=== PATIENT | male | born 1985 | race Caucasian/White ===

== ENCOUNTER 2024-11-23 21:39 | Emergency (ER) | payer OTHER, SELFPAY ==
--- OUTSIDE RECORDS SUMMARY | 2024-11-23 21:45 | XMS_ITS | Clinical Summary ---
Author Organization [facility] Address [address] [place] [address] Care Team Providers Care Precision Assembly Inspector Name Role Phone Brandin Harman MD Primary Care Provider [phone] Norma Mercado NP Unavailable [phone] Allergies No known active allergies Medications No known medications Active Problems Problem Noted Date Diagnosed Date Fever 06/09/2024 Assessment & Plan (06/09/2024 5:01 PM EST): Fluids, tylenol/motrin prn Check for covid/flu in office test: negative Acute non-recurrent maxillary sinusitis 06/09/20 Assessment & Plan (06/09/2024 5:02 PM EST): Possible sinus infection secondary to inhalation last week Did have a nose bleed as well Current symptoms started with frontal FAUSTIN, and then 2 days later fever Will treat for sinus infection If not better or new symptoms occur contact office Chronic right shoulder pain 02/19/2024 Assessment & Plan (02/19/2024 9:16 AM EDT): Suspect labral tear Will refer to ortho Fu if needed Resolved Problems Problem Noted Date Diagnosed Date Resolved Date Acute URI 06/12/2023 06/09/2024 Assessment & Plan (06/12/2023 9:41 AM EST): Patient reports cough, nasal, chest congestion, post nasal drip, sinus pain x 3 weeks He initially had fever too but has been afebrile over a week now. 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 Based on exam - I am confident that he needs an antibiotic therapy. I will call in PO Augmentin for the patient. I will also add Prednisone 40 mg for 5 days to help with congestive symptoms, cough and Benzonatate as needed for cough. Patient encouraged to call office if worsening symptoms despite being on medications. And to seek emergent care if he develops systemic signs and symptoms of infection like persistent fever, lightheadedness, confusion or SOB. Immunizations Immunization Administration Dates Next Due DTP 09/27/1990, 7,01/23/1986,1985,0 1985 Hep B, Adolescent or Pediatric 08/02/1999,1997,01/14/1998 HiB, unspecified 06/29/1987 MMR 01/13/1998,10/02/1986 OPV 09/27/1990,02/04/1987,1985 ,1985 Td (adult), unspecified 08/02/1999 Social History Tobacco Use Types Packs/Day Years Used Date Smoking Tobacco: Never Smokeless Tobacco: Never Tobacco Cessation:Counseling Given: No Alcohol Use Standard Drinks/Week Comments Yes 0 (1 standard drink = 0.6 oz pur e alcohol) Sex and Gender Information Value Date Recorded Sex Assigned at Not on file Legal Sex Male 6:39 PM EDT Gender Identity Not on file Sexual Orientation Not on file Last Filed Vital Signs Vital Sign Reading Time Taken Comments Blood Pressure 100/80 06/09/2024 4:26 PM EST Pulse 95 06/09/2024 4:26 PM EST Temperature 37.3 C (99.2 F) 06/09/2024 4:26 PM EST Respiratory Rate 18 06/09/2024 4:26 PM EST Oxygen Saturation 96% 06/09/2024 4:26 PM EST Inhaled Oxygen Concentration - - Weight 100 kg (220 lb 12.8 oz) 06/09/2024 4:26 P M EST Height 185.4 cm (6' 1 ) 06/09/2024 4:26 PM EST Body Mass Index 29.13 06/09/2024 4:26 PM EST Plan of Treatment Health Maintenance Due Date Last Done Comments Influenza Vaccine Discontinued Insurance [facility] Address: [facility] [id number] [place] [address] Care Teams Precision Assembly Inspector Relationship Specialty Start Date End Date Brandin Harman MD [address] [place] [id number] PCP - General Family Medicine 02/12/24 Norma Mercado NP [address] [place] [id number] Nurse Practitioner Family Medicine 02/12/24
[2024-11-23 21:56] VITALS: PULSE 66; TEMP 36.7; O2SAT 100; BMI 29.1
--- NOTE | 2024-11-23 22:10 | ED_ITS ---
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 Presents complaining of pain. Able to control bleeding by applying pressure. Has minor abrasion left hand but not concerned about it. Denies other injures. Not sure of last Tetanus shot Related Data Previous Rx's ?Medication ?Instructions ?Recorded ibuprofen 600 mg tablet 600 mg PO Q8H PRN pain #20 t abs 11/24/24 Allergies Allergy/AdvReac Type Severity Reaction Status Date / Time codeine Allergy Mild Unknown Verified 11/23/24 22:05 Review of Systems ROS Status of ROS 10 or more systems reviewed and unremark able except as noted in history and below PFSH PFSH Social History Little interest or pleasure in doing things: not at all Feeling down, depressed, or hopeless: not at all Exam Constitutional Vital Signs, click to edit/add: Last Vital Signs Temp 98.1 F 11/23/24 21:56 Pulse 66 11/23/24 21:56 Resp 20 11/23/24 21:56 Pulse Ox 100 11/23/24 21:56 O2 Del Method Room Air 11/23/24 21:56 Common normals: no apparent distress, average body habitus, oriented x3, no limitations, healthy appearing, alert and well nourished [facility] Common normals: normocephalic and head/scalp atraumatic Eye Common normals: PERRL and EOMs intact bilaterally Respiratory Common normals: normal respiratory effort, no retractions, no use of accessory muscles and clear to auscultation bilaterally Cardio Common normals: regular rate, regular rhythm, S1 normal heart sound and S2 normal heart sound Extremity Other: deep blunt laceration right medial calf area. 8cm lac. no obvious FB. No active bleeding at this time. No swelling or ecchymosis Neuro Common normals: oriented x3, CN's II-XII intact bilaterally and moves all extremities Sensorium/orientation: awake Psych Appearance: grossly normal Course Vital Signs Vital signs: Vital Signs Temperature 98.1 F 11/23/24 21:56 Pulse Rate 66 11/23/24 21:56 Respiratory Rate 20 11/23/24 21:56 Pulse Oximetry 100 11/23/24 21:56 Oxygen Delivery Method Room Air 11/23/24 21:56 Temperature 98.1 F 11/23/24 21:56 Pulse Rate 66 11/23/24 21:56 Respiratory Rate 20 11/23/24 21:56 Pulse Oximetry 100 11/23/24 21:56 Oxygen Delivery Method Room Air 11/23/24 21:56 MDM - Extremity Injury (Lower) MDM Narrative Medical decision making narrative: presents after blunt lac to right medial calf. Peg of motor bite cut his leg. Patient given dose of Augmentin and also tetanus. Laceration repaired as above. Patient discharged home to follow up with his doctor Discharge Plan Discharge Chief Complaint: Wound/Laceration Clinical Impression: Laceration Patient Disposition: Home, Self-Care Prescriptions / Home Meds: New ibuprofen 600 mg tablet 600 mg PO Q8H PRN (Reason: pain) Qty: 20 0RF Print Language: Lebanese Instructions: Laceration (ED) Additional Instructions: have wound rechecked in 2-3 days and stitches removed in 10-12 days Referrals: Norma Mercado NP [Primary Care Provider, Family Practice] - 1 week Discharge Date/Time: 11/24/24 00:20 Procedures ED Procedure Instructions Procedures Procedures: lac. repair.right leg. 8cm full thickness into SQ space. No obvious FB. 1% lido with epi as local. Site cleaned with betadine and rinsed with saline closed with # 3 4.0 vicry and #10 3.0 nylon interrupted stitches. tolerated well.
[2024-11-23] MEDS: AMOXICILLIN/POT CLAV 875-125 MG TABLET 1 TAB PO (22:29)
[2024-11-23] MEDS: ADACEL DIPH,PERTUSS(ACELL),TET VAC/PF 0.5 ML ADULT SYRINGE IM (22:29)
[2024-11-23] MEDS: LIDOCAINE HCL 1%-EPINEPHRINE 1:100,000 20 ML MDV INJ (22:31)
== END 2024-11-24 00:20 | disposition home or self-care (01) ==
PROVIDERS: Emergency Provider Internal Medicine; PCP Nurse Practitioner
DX: S81.811A Laceration without foreign body, right lower leg, initial encounter (principal); S60.512A Abrasion of left hand, initial encounter; Z23 Encounter for immunization; W26.8XXA Contact with other sharp object(s), not elsewhere classified, initial encounter
CPT/HCPCS: 12004; 73590; 90471; 90715; 99284

== ENCOUNTER 2024-12-03 08:10 | Outpatient (OUT) | payer OTHER, SELFPAY ==
[2024-12-03 10:57] LABS: Basophils Absolute Auto 0.1 10^3/uL (0.0-0.1); Basophils Percent Auto 0.7 % (0.2-2.0); Eosinophils Absolute Auto 0.2 10^3/uL (0.0-0.7); Eosinophils Percent Auto 3.4 % (0.9-7.0); Hematocrit 45.4 % (42.0-54.0); Hemoglobin 15.9 g/dL (14.0-18.0); Immature Granulocytes Abs Auto 0.02 10^3/uL (0.00-0.03); Immature Granulocytes Pct Auto 0.3 % (0.0-0.5); Lymphocytes Absolute Auto 3.1 10^3/uL (1.2-3.8); Lymphocytes Percent Auto 46.1 % (20.5-60.0); Mean Corpuscular Hemoglobin 29.3 pg (25.9-34.0); Mean Corpuscular Volume 83.6 fL (80.0-94.0); Mean Platelet Volume 11.5 fL (9.5-13.5); Monocytes Absolute Auto 0.6 10^3/uL (0.3-0.8); Monocytes Percent Auto 8.3 % (1.7-12.0); Neutrophils Absolute Auto 2.8 10^3/uL (1.4-6.5); Neutrophils Percent Auto 41.2 % (43.0-75.0); Platelet Count 344 10^3/uL (150-450); Red Blood Count 5.43 10^6/uL (4.70-6.10); Red Cell Distribution Width 12.7 % (11.0-15.0); White Blood Count 6.7 10^3/uL (4.0-11.0)
[2024-12-03 11:00] LABS: Erythrocyte Sedimentation Rate 14 mm/hr (<=15)
[2024-12-03 11:22] LABS: C Reactive Protein <0.50 mg/dL (<=0.50)
== END 2024-12-03 08:11 | disposition home or self-care (01) ==
LOC: LAB 08:12
PROVIDERS: PCP Nurse Practitioner; Visit Provider Nurse Practitioner
DX: S81.811D Laceration without foreign body, right lower leg, subsequent encounter (principal)
CPT/HCPCS: 36415; 85025; 85652; 86140

== ENCOUNTER 2024-12-04 17:48 | Outpatient (OUT) | payer OTHER, SELFPAY ==
--- OUTSIDE RECORDS SUMMARY | 2024-11-26 14:00 | XMS_ITS | Encounter Summary ---
Author Organization [facility] Address [address] [facility] [place] [address] Care Team Providers Care Director Of Catering Name Role Phone Brandin Harman MD Primary Care Provider [phone] Norma Mercado NP Unavailable [phone] Reason for Visit * Reason Comments Laceration Encounter Details Date Type Department Care Team (Late st Contact Info) Description 11/26/2024 2:00 PM EDT Office Visit [facility] [address] [place] [address] Norma Mercado, ROLLING DOWN MACHINE OPERATOR [address] [place] [address] Laceration of right lower extremity, subsequent encounter (Primary Dx) Social History Tobacco Use Types Packs/Day Years Used Date Smoking Tobacco: Never Smokeless Tobacco: Never Alcohol Use Standard Drinks/Week Comments Yes 0 (1 standard drink = 0.6 oz pur e alcohol) Sex and Gender Information Value Date Recorded Sex Assigned at Not on file Legal Sex Male 6:39 PM EDT Gender Identity Not on file Sexual Orientation Not on file documented as of this encounter Last Filed Vital Signs Vital Sign Reading Time Taken Comments Blood Pressure 130/80 11/26/2024 2:19 PM EDT Pulse 85 11/26/2024 2:19 PM EDT Temperature 37 C (98.6 F) 11/26/2024 2:19 PM EDT Respiratory Rate 18 11/26/2024 2:19 PM EDT Oxygen Saturation 96% 11/26/2024 2:19 PM EDT Inhaled Oxygen Concentration - - Weight 102 kg (223 lb 12.8 oz) 11/26/2024 2:19 P M EDT Height - - Body Mass Index 29.53 06/09/2024 4:26 PM EST documented in this encounter Patient Instructions * Patient Instructions* Norma Mercado NP - 11/26/2024 2:00 PM EDT Finish atb Fu for suture removal documented in this encounter Progress Notes * Norma Mercado NP - 11/26/2024 2:47 PM EDTAssociated Problem(s): Laceration of right lower extremity Ice, cam, elevation Finish atb Discussed flexion/extension to prevent DVT Fu for suture removal in 10 days, Sooner if change in sxs Discussed wound care * FAROOQ MORRIS - 11/26/2024 2:00 PM EDT 3 de solvable sutures inside laceration and 10 outside. Pt states that laceration is still painful and stiff. Pt came in with an outdated borrowed crutch to help with balancing. Laceration is sutured, dry/scabbed over, open to air, clean, no swelling. Pt states he has been elevating right leg oftenand icing it as needed he does have an appt for suture removal on 12/04 in this office * Norma Mercado NP - 11/26/2024 2:00 PM EDT Images from the original note were not included. Vern Saavedra is a 39 y.o. male presents with chief complaint of Laceration HPI: Er FU: 10 sutures placed and 3 internal Laceration The incident occurred 2 days ago. The laceration is located on the Right leg. The laceration is 6 cm in size. The laceration mechanism was a blunt object and metal edge. The pain is at a severity of 3/10. The pain is mild. The pain has been Fluctuating since onset. He reports no foreign bodies present. His tetanus status is UTD. SUBJECTIVE: MEDICATIONS: Current Outpatient Medications Medication Instructions amoxicillin-clavulanate (Augmentin) 875-125 MG tablet 1 tablet, 2 times daily ibuprofen 600 MG tablet 1 tablet, Every 8 hours PRN ALLERGIES: No Known Allergies REVIEW OF SYMPTOMS: Review of Systems Constitutional: Negative for activity change, appetite change and unexpected weight change. HENT: Negative for ear pain, nosebleeds, sneezing, trouble swallowing and voice change. Eyes: Negative for pain, discharge and visual disturbance. Respiratory: Negative for apnea, chest tightness and wheezing. Cardiovascular: Negative for leg swelling. Gastrointestinal: Negative for abdominal distention, blood in stool, constipation and diarrhea. Genitourinary: Negative for decreased urine volume, difficulty urinating, dysuria and hematuria. Skin: Positive for wound. Negative for color change. Neurological: Negative for dizziness, tremors and seizures. Psychiatric/Behavioral: Negative for agitation, decreased concentration, hallucinations, self-injury and suicidal ideas. The patient is not nervous/anxious. Hematological: Negative for adenopathy. Does not bruise/bleed easily. Endocrine: Negative for cold intolerance, heat intolerance, polydipsia and polyuria. Allergic/Immunologic: Negative for environmental allergies and food allergies. PAST MEDICAL HISTORY No past medical history on file. Past Surgical History: Procedure Laterality Date RHINOPLASTY VASECTOMY Bilateral family history is not on file. OBJECTIVE: Visit Vitals BP 130/80 (BP Location: Left arm, Patient Position: Sitting, BP Cuff Size: Adult long) Pulse 85 Temp 98.6 ??F (Temporal) Resp 18 Wt 223 lb 12.8 oz SpO2 96% BMI 29.53 kg/m?? Smoking Status Never BSA 2.29 m?? Physical Exam Vitals and nursing note reviewed. Constitutional: Appearance: Normal appearance. HENT: Head: Normocephalic. Right Ear: External ear normal. Left Ear: External ear normal. Nose: Nose normal. Mouth/Throat: Mouth: Mucous membranes are moist. Pharynx: Oropharynx is clear. Eyes: Extraocular Movements: Extraocular movements intact. Conjunctiva/sclera: Conjunctivae normal. Cardiovascular: Rate and Rhythm: Normal rate and regular rhythm. Pulses: Normal pulses. Heart sounds: Normal heart sounds. Pulmonary: Effort: Pulmonary effort is normal. Breath sounds: Normal breath sounds. Musculoskeletal: Cervical back: Neck supple. Right lower leg: Edema present. Left lower leg: No edema. Skin: General: Skin is dry. Capillary Refill: Capillary refill takes 2 to 3 seconds. Comments: 6.5cm laceration right ng area with 10 sutures placed, no s/s infection Edges approx Mod swelling to calf area, sl bruising around the laceration No s/s infection of DVT, achilles is intact +DP/PT pulse right foot Neurological: General: No focal deficit present. Mental Status: He is alert. Psychiatric: Mood and Affect: Mood normal. Behavior: Behavior normal. Thought Content: Thought content normal. Judgment: Judgment normal. ASSESSMENT AND PLAN: No follow-ups on file. Problem List Items Addressed This Visit Laceration of right lower extremity - Primary Ice, cam, elevation Finish atb Discussed flexion/extension to prevent DVT Fu for suture removal in 10 days, Sooner if change in sxs Discussed wound care documented in this encounter Plan of Treatment Not on file documented as of this encounter Visit Diagnoses Diagnosis Laceration of right lower extremity, subsequent encounter- Primary documented in this encounter Care Teams Director Of Catering Relationship Specialty Start Date End Date Brandin Harman MD [address] [place] [address] PCP - General Family Medicine 02/12/24 Norma Mercado NP [address] [place] [address] Nurse Practitioner Family Medicine 02/12/24 documented as of this encounter
--- OUTSIDE RECORDS SUMMARY | 2024-12-04 16:00 | XMS_ITS | Encounter Summary ---
Author Organization [facility] Address [address] [facility] [place] [address] Care Team Providers Care New Business Clerk Name Role Phone Brandin Harman MD Primary Care Provider Norma Mercado NP Unavailable [phone] Reason for Visit * Reason Comments Suture / Staple Removal Encounter Details Date Type Department Care Team (Late st Contact Info) Description 12/04/2024 4:00 PM EDT Office Visit [facility] [address] [place] [address] Norma Mercado, APPLICATION DEVELOPMENT PROJECT MANAGER [address] [place] [address] Laceration of right lower extremity, subsequent encounter (Primary Dx); Right calf pain Social History Tobacco Use Types Packs/Day Years [...] Sign Reading Time Taken Comments Blood Pressure 130/86 12/04/2024 4:21 PM EDT Pulse 82 12/04/2024 4:21 PM EDT Temperature 36.9 C (98.5 F) 12/04/2024 4:21 PM EDT Respiratory Rate 18 12/04/2024 4:21 PM EDT Oxygen Saturation 97% 12/04/2024 4:21 PM EDT Inhaled Oxygen Concentration - - Weight 100 kg (220 lb 12.8 oz) 12/04/2024 4:21 P M EDT Height - - Body Mass Index 29.13 06/09/2024 4:26 PM EST documented in this encounter Patient Instructions * Patient Instructions* Norma Mercado NP - 12/04/2024 4:00 PM EDT Check xray and US at 6pm [facility] Finish atb documented in this encounter Progress Notes * Norma Mercado NP - 12/04/2024 5:12 PM EDTAssociated Problem(s): Right calf pain Check US to R/o DVT Appt 12/04/24 at 6pm Will also check xray ankle * Norma Mercado NP - 12/04/2024 5:11 PM EDTAssociated Problem(s): Laceration of right lower extremity Sutures removed, tolerated well Steri strips X2 Labs WNL Finish atb Cont NSAID, compression and elevation Wants to RTW on 12/07/24 * Norma Mercado NP - 12/04/2024 4:00 PM EDT Images from the original note were not included. Vern Saavedra is a 39 y.o. male presents with chief complaint of Suture / Staple Removal HPI: Open wound RLE, here for suture removal Had experienced an increase in swelling /reddness upon returning to work Took off work a few days, changed atb to clinda No drainage, no fever, chills, +pain right calf, and tenderness to right ankle no chest pain/pressure Has been using compression, elevation SUBJECTIVE: MEDICATIONS: Current Outpatient Medications Medication Instructions clindamycin (CLEOCIN) 300 mg, 4 times daily ibuprofen 600 MG tablet 1 tablet, Every 8 hours PRN ALLERGIES: No Known Allergies REVIEW OF SYMPTOMS: Review of Systems Constitutional: Negative for activity change, appetite change and unexpected weight change. HENT: Negative for ear pain, nosebleeds, sneezing, trouble swallowing and voice change. Eyes: Negative for pain, discharge and visual disturbance. Respiratory: Negative for apnea, chest tightness and wheezing. Cardiovascular: Positive for leg swelling. Gastrointestinal: Negative for abdominal distention, blood in stool, constipation and diarrhea. Genitourinary: Negative for decreased urine volume, difficulty urinating, dysuria and hematuria. Musculoskeletal: Positive for arthralgias. Skin: Positive for wound. Negative for color [...] not on file. OBJECTIVE: Visit Vitals BP 130/86 (BP Location: Left arm, Patient Position: Sitting, BP Cuff Size: Adult long) Pulse 82 Temp 98.5 ??F (Temporal) Resp 18 Wt 220 lb 12.8 oz SpO2 97% BMI 29.13 kg/m?? Smoking Status Never BSA 2.27 m?? Physical Exam Vitals and nursing note [...] breath sounds. Musculoskeletal: Cervical back: Neck supple. Comments: Wound to right ng area: 10 sutures intact and removed, tolerated well upper 1cm of laceration does appear to not have edges approx, steri stripsx2 applied Calf tender as well as ankle, generalized swelling about the RLE as well as ecchymosis +DP/PT pulse right Skin: General: Skin is warm and dry. Capillary Refill: Capillary refill takes 2 to 3 seconds. Neurological: General: No focal deficit present. Mental Status: He is alert. Psychiatric: Mood and Affect: Mood normal. Behavior: Behavior normal. Thought Content: Thought content normal. Judgment: Judgment normal. ASSESSMENT AND PLAN: No follow-ups on file. Problem List Items Addressed This Visit Laceration of right lower extremity - Primary Sutures removed, tolerated well Steri strips X2 Labs WNL Finish atb Cont NSAID, compression and elevation Wants to RTW on 12/07/24 Right calf pain Check US to R/o DVT Appt 12/04/24 at 6pm Will also check xray ankle documented in this encounter Plan of Treatment Not on file documented as of this encounter Visit Diagnoses Diagnosis Laceration of right lower extremity, subsequent encounter- Primary Right calf pain documented in this encounter Care Teams New Business Clerk Relationship Specialty Start Date End Date Brandin Harman MD [address] [place] [address] PCP - General Family Medicine 02/12/24 Norma Mercado NP [address] [place] [address] Nurse Practitioner Family Medicine 02/12/24 documented as of this encounter
--- OUTSIDE RECORDS SUMMARY | 2024-12-04 17:51 | XMS_ITS | Clinical Summary ---
Author Organization [facility] Address [address] [place] [address] Care Team Providers Care Day Habilitation Supervisor Name Role Phone Brandin Harman MD Primary Care Provider [phone] Norma Mercado NP Unavailable [phone] Allergies No known active allergies Medications ibuprofen 600 MG tablet Take 1 tablet by mouth every 8 (eight) hours if needed 5 Active clindamycin (Cleocin) 300 MG capsule Take 300 mg by mouth in the morning and 300 mg at noon and 300 mg in the evening and 300 mg before bedtime. 5 Active amoxicillin-cla vulanate (Augmentin) 875-125 MG tablet Take 1 tablet by mouth in the morning and 1 tablet before bedtime. 5 12/05/19 Discontinu ed(Therapy completed) Active Problems Problem Noted Date Diagnosed Date Right calf pain 12/04/2024 Assessment & Plan (12/04/2024 5:12 PM EDT): Check US to R/o DVT Appt 12/04/24 at 6pm Will also check xray ankle Laceration of right lower extremity 11/26/2024 Assessment & Plan (12/04/2024 5:11 PM EDT): Sutures removed, tolerated well Steri strips X2 Labs WNL Finish atb Cont NSAID, compression and elevation Wants to RTW on 12/07/24 Assessment & Plan (11/26/2024 2:47 PM EDT): Ice, cam, elevation Finish atb Discussed flexion/extension to prevent DVT Fu for suture removal in 10 days, Sooner if change in sxs Discussed wound care Chronic right shoulder pain 02/19/2024 Assessment & Plan (02/19/2024 9:16 AM EDT): Suspect labral tear Will refer to ortho Fu if needed Resolved Problems Problem Noted Date Diagnosed Date Resolved Date Fever 06/09/2024 11/26/2024 Assessment & Plan (06/09/2024 5:01 PM EST): Fluids, tylenol/motrin prn Check for covid/flu in office test: negative Acute non-recurrent maxillary sinusitis 06/09/2024 11/26/2024 Assessment & Plan (06/09/2024 5:02 PM EST): Possible sinus infection secondary to inhalation last week Did have a nose bleed as well Current symptoms started with frontal FAUSTIN, and then 2 days later fever Will treat for sinus infection If not better or new symptoms occur contact office Acute URI 06/12/2023 06/09/2024 Assessment & Plan (06/12/2023 9:41 AM EST): Patient reports cough, nasal, chest congestion, post nasal drip, sinus pain x 3 weeks He initially had fever too but has been afebrile over a week now. Denies earache/pressure, SOB but on exam has evidence of bilateral otitis media Patent had office based [employer]INE[employer] swab for resp panel, results of which [...] like persistent fever, lightheadedness, confusion or SOB. Encounters Date Type Department Care Team Description 12/04/2024 4:00 PM EDT Office Visit [facility] [address] [place] [address] Norma Mercado NP Laceration of right lower extremity, subsequent encounter (Primary Dx); Right calf pain 12/04/2024 Abstract [facility] [address] [place] [address] Norma Mercado NP 12/04/2024 Bamboo flowsheet [facility] [address] [place] [address] Norma Mercado NP 12/03/2024 Clinisync Result Encounter [facility] External Department Unsolicited Norma Mercado NP 12/03/2024 Orders Only [facility] [address] [place] [address] Norma Mercado NP Laceration of right lower extremity, subsequent encounter (Primary Dx) 11/26/2024 2:00 PM EDT Office Visit [facility] [address] [place] [phone] Norma Mercado NP Laceration of right lower extremity, subsequent encounter (Primary Dx) 11/26/2024 Bamboo flowsheet [facility] [address] [place] [address] Norma Mercado NP from Last 3 Months Immunizations Immunization Administration Dates Next Due DTP [...] oz) 12/04/2024 4:21 P M EDT Height 185.4 cm (6' 1 ) 06/09/2024 4:26 PM EST Body Mass Index 29.13 06/09/2024 4:26 PM EST Plan of Treatment Health Maintenance Due Date Last Done Comments Influenza Vaccine Discontinued Procedures Procedure Name Priority Date/Time Associated Diagnosis Comments ALL C REACTIVE PROTEIN Routine 12/03/2024 10:51 AM EDT ALL SED RATE Routine 12/03/2024 10:51 AM EDT ALL CBC WITH AUTO DIFF Routine 12/03/2024 10:51 AM EDT from Last 3 Months Results * ALL SED RATE (12/03/2024 10:51 AM EDT) [facility] SED RATE 14 <=15 mm/hr [facility] 12/03/2024 10:5 1 AM EDT 12/03/2024 10:55 AM EDT Narrative [facility] - 12/03/2024 11:00 AM EDT us Norma Mercado NP [facility] Final Result [facility] * (ABNORMAL) ALL CBC WITH AUTO DIFF (12/03/2024 10:51 AM EDT) [facility] WBC 6.7 4.0 - 11.0 10 3/uL [facility] RBC 5.43 4.70 - 6.10 10 6/uL [facility] HGB 15.9 14.0 - 18.0 g/dL [facility] TB[facility] HCT 45.4 42.0 - 54.0 % [facility] MCV 83.6 80.0 - 94.0 fL [facility] TB[facility] MCH 29.3 25.9 - 34.0 pg TBH TBH MCHC 35.0 29.9 - 35.2 g/dL [facility] RDW 12.7 11.0 - 15.0 % [facility] TBH PLT 344 150 - 450 10 3/uL [facility] MPV 11.5 9.5 - 13.5 fL [facility] NEUTROPHILS PERCENT AUTO 41.2(L) 43.0 - 75.0 % [facility] LYMPHOCYTES PERCENT AUTO 46.1 20.5 - 60.0 % [facility] MONOCYTES PERCENT AUTO 8.3 1.7 - 12.0 % [facility] EO % 3.4 0.9 - 7.0 % [facility] BASOPHILS PERCENT AUTO 0.7 0.2 - 2.0 % [facility] IMMATURE GRANULOCYTES PCT AUTO 0.3 0.0 - 0.5 % [facility] NEUTROPHILS ABSOLUTE AUTO 2.8 1.4 - 6.5 10 3/uL [facility] LYMPHOCYTES ABSOLUTE AUTO 3.1 1.2 - 3.8 10 3/uL [facility] MONOCYTES ABSOLUTE AUTO 0.6 0.3 - 0.8 10 3/uL [facility] TBH EO # 0.2 0.0 - 0.7 10 3/uL [facility] BASOPHILS ABSOLUTE AUTO 0.1 0.0 - 0.1 10 3/uL [facility] IMMATURE GRANULOCYTES ABS AUTO 0.02 0.00 - 0.03 10 3/uL [facility] 12/03/2024 10:5 1 AM EDT 12/03/2024 10:55 AM EDT Narrative CL[facility] - 12/03/2024 11:00 AM EDT us Norma Mercado NP [facility] Final Result [facility] * ALL C REACTIVE PROTEIN (12/03/2024 10:51 AM EDT) C REACTIVE PROTEIN <0.50 <=0.50 mg/dL [facility] 12/03/2024 10:5 1 AM EDT 12/03/2024 10:55 AM EDT Narrative [facility]IN[facility] - 12/03/2024 11:23 AM EDT Norma Mercado NP [facility] Final Result [facility] from Last 3 Months Insurance [facility] Address: [facility] [id number] [place] [phone] Care Teams Day Habilitation Supervisor Relationship Specialty Start Date End Date Brandin Harman MD [address] [place] [address] PCP - General Family Medicine 02/12/24 Norma Mercado NP [address] [place] [address] Nurse Practitioner Family Medicine 02/12/24
--- OUTSIDE RECORDS SUMMARY | 2024-12-04 17:51 | XMS_ITS | Encounter Summary ---
Author Organization [facility] Address [address] [facility] [place] [address] Care Team Providers Care Steward/Stewardess Name Role Phone Brandin Harman MD Primary Care Provider Norma Mercado NP Unavailable [phone] Encounter Details Date Type Department Care Team (Late st Contact Info) Description 12/04/[address] [facility] [address] [place] [phone] Norma Mercado NP [address] [place] [address] Social History Tobacco Use Types Packs/Day Years [...] on file documented as of this encounter Plan of Treatment Not on file documented as of this encounter Visit Diagnoses Not on filedocumented in this encounter Care Teams Steward/Stewardess Relationship Specialty Start Date End Date Brandin Harman MD [address] [place] [address] PCP - General Family Medicine 02/12/24 Norma Mercado NP [address] [place] [address] Nurse Practitioner Family Medicine 02/12/24 documented as of this encounter
--- OUTSIDE RECORDS SUMMARY | 2024-12-04 17:51 | XMS_ITS | Encounter Summary ---
Author Organization [facility] Address [address] [facility] [place] [address] Care Team Providers Care Home Office Representative Name Role Phone Brandin Harman MD Primary Care Provider Norma Mercado NP Unavailable [phone] Encounter Details Date Type Department Care Team (Late st Contact Info) Description 11/26/2024 Bamboo flowsheet [facility] [address] [place] [phone] Norma Mercado NP [address] [place] [address] Social History Tobacco Use Types Packs/Day Years [...] on filedocumented in this encounter Care Teams Home Office Representative Relationship Specialty Start Date End Date Brandin Harman MD [address] [place] [address] PCP - General Family Medicine 02/12/24 Norma Mercado NP [address] [place] [address] Nurse Practitioner Family Medicine 02/12/24 documented as of this encounter
--- OUTSIDE RECORDS SUMMARY | 2024-12-04 17:51 | XMS_ITS | Encounter Summary ---
Author Organization [facility] Address [address] [facility] [place] [address] Care Team Providers Care Director Of Healthcare Systems Name Role Phone Brandin Harman MD Primary Care Provider Norma Mercado NP Unavailable [phone] Encounter Details Date Type Department Care Team (Late st Contact Info) Description 12/04/2024 Bamboo flowsheet [facility] [address] [place] [phone] Norma Mercado NP [address] [place] [address] Social History Tobacco Use Types Packs/Day Years [...] on filedocumented in this encounter Care Teams Director Of Healthcare Systems Relationship Specialty Start Date End Date Brandin Harman MD [address] [place] [address] PCP - General Family Medicine 02/12/24 Norma Mercado NP [address] [place] [address] Nurse Practitioner Family Medicine 02/12/24 documented as of this encounter
--- OUTSIDE RECORDS SUMMARY | 2024-12-04 17:51 | XMS_ITS | Encounter Summary ---
Author Organization [facility] Address [address] [facility] [place] [address] Care Team Providers Care Search Optimization Analyst Name Role Phone Brandin Harman MD Primary Care Provider Norma Mercado NP Unavailable [phone] Encounter Details Date Type Department Care Team (Late st Contact Info) Description 12/03/2024 Orders Only [facility] [address] [place] [address] Norma Mercado, JESSEE [address] [place] [address] Laceration of right lower extremity, subsequent encounter [...] as of this encounter Plan of Treatment Scheduled Orders Name Type Priority Associated Diagnoses Orde r Schedule CBC and differential Lab Routine Laceration of right lower extremity, subsequent encounter Expected: 12/03/2024 (Approximate), Expires: 12/03/2025 Sedimentation rate, automated Lab Routine Laceration of right lower extremity, subsequent encounter Expected: 12/03/2024 (Approximate), Expires: 12/03/2025 C-reactive protein Lab Routine Laceration of right lower extremity, subsequent encounter Expected: 12/03/2024 (Approximate), Expires: 12/03/2025 documented as of this encounter Visit Diagnoses Diagnosis Laceration of right lower extremity, subsequent encounter- Primary documented in this encounter Care Teams Search Optimization Analyst Relationship Specialty Start Date End Date Brandin Harman MD [address] [place] [address] PCP - General Family Medicine 02/12/24 Norma Mercado NP [address] [place] [address] Nurse Practitioner Family Medicine 02/12/24 documented as of this encounter
--- OUTSIDE RECORDS SUMMARY | 2024-12-04 17:51 | XMS_ITS | Encounter Summary ---
Author Organization [facility] Address [address] [place] [address] Care Team Providers Care Clinical Safety Manager Name Role Phone Brandin Harman MD Primary Care Provider [phone] Norma Mercado NP Unavailable [phone] Encounter Details Date Type Department Care Team (Late st Contact Info) Description 12/03/2024 Clinisync Result Encounter [facility] External Department Unsolicited Norma Mercado NP [address] [place] [address] Social History Tobacco Use Types Packs/Day Years [...] on file documented as of this encounter Procedures Procedure Name Priority Date/Time Associated Diagnosis Comments ALL SED RATE Routine 12/03/2024 10:51 AM EDT ALL CBC WITH AUTO DIFF Routine 12/03/2024 10:51 AM EDT ALL C REACTIVE PROTEIN Routine 12/03/2024 10:51 AM EDT documented in this encounter Results * ALL C REACTIVE PROTEIN (12/03/2024 10:51 AM EDT) C REACTIVE PROTEIN <0.50 <=0.50 mg/dL [facility] 12/03/2024 10:5 1 AM EDT 12/03/2024 10:55 AM EDT Narrative CLINISYNC - 12/03/2024 11:23 AM EDT Norma Mercado [employer] [facility] Final Result [place] * ALL SED RATE (12/03/2024 10:51 AM EDT) [facility] SED RATE 14 <=15 mm/hr TB 12/03/2024 10:5 1 AM EDT 12/03/2024 10:55 AM EDT Narrative CLINISYNC - 12/03/2024 11:00 AM EDT Norma Macarioperez [facility] CLIN[facility] Final Result Performing Organization Address City/[facility]/ZIP Co de Phone Number [facility] * (ABNORMAL) ALL CBC WITH AUTO DIFF (12/03/2024 10:51 AM EDT) [facility] WBC 6.7 4.0 - 11.0 10 3/uL [facility] TB RBC 5.43 4.70 - 6.10 10 6/uL [facility] TB HGB 15.9 14.0 - 18.0 g/dL TB TB HCT 45.4 42.0 - 54.0 % TB TB MCV 83.6 80.0 - 94.0 fL TB TB MCH 29.3 25.9 - 34.0 pg TBH TB MCHC 35.0 29.9 - 35.2 g/dL TB TB RDW 12.7 11.0 - 15.0 % TB TB PLT 344 150 - 450 10 3/uL TB TB MPV 11.5 9.5 - 13.5 fL TB NEUTROPHILS PERCENT AUTO 41.2(L) 43.0 - 75.0 % TBH LYMPHOCYTES PERCENT AUTO 46.1 20.5 - 60.0 % TB MONOCYTES PERCENT AUTO 8.3 1.7 - 12.0 [...] us Norma Mercado NP CLINIS[facility]NC Final Result Performing Organization Address City/State/[facility] de Phone Number [facility] documented in this encounter Visit Diagnoses Not on filedocumented in this encounter Care Teams Clinical Safety Manager Relationship Specialty Start Date End Date Brandin Harman MD [address] [place] [phone] PCP - General Family Medicine 02/12/24 Norma Mercado NP [address] [place] [address] Nurse Practitioner Family Medicine 02/12/24 documented as of this encounter
--- NOTE | 2024-12-04 17:55 | XR_ITS ---
[place] [id number] Patient Name: ZHANE FRANKS MRN: [id number] date: 1985 Sex: M Assigned Patient Location: [facility] Current Patient Location: [facility] Accession/Order Number: [id number] Exam Date: 12/04/2024 18:27 Report Date: 12/04/2024 18:28 At the request of: SETH LOPEZ NP Procedure: XR ankle RT min 3V 3 views right ankle plain film COMPARISON: None HISTORY: Right ankle pain and swelling. Injury. ACUTE FINDINGS: None DEGENERATIVE CHANGE: Unremarkable SOFT TISSUE FINDINGS: Soft tissue swelling JOINT EFFUSION: None POSTOP CHANGES: None BONE MINERALIZATION: Adequate XR/XR ankle RT min 3V IMPRESSION: No acute findings. Impression dictated by: Gonzalo Herrera M.D. 12/04/2024 6:28 PM Dictation Location: [place] [address] Electronically authenticated by: [id number] Y Date: 12/04/2024 18:28
== END 2024-12-04 17:49 | disposition home or self-care (01) ==
PROVIDERS: PCP Nurse Practitioner; Visit Provider Nurse Practitioner
DX: M79.604 Pain in right leg (principal); M25.571 Pain in right ankle and joints of right foot
CPT/HCPCS: 73610; 93971